=== PATIENT | male | born 1985 | race Caucasian/White ===

== ENCOUNTER 2022-01-06 10:51 | Emergency (ER) | payer MEDICAID, SELFPAY ==
--- NOTE | ~2022-01-06 | XR_ITS ---
EXAMINATION: XR CHEST CLINICAL INFORMATION: Shortness of breath, chest pain. COMPARISON: None TECHNIQUE: 2 views of the chest were obtained. FINDINGS: No significant abnormality is noted involving the heart, lungs, mediastinum, bony thorax or soft tissues. XR/XR chest 2V IMPRESSION: No acute cardiopulmonary process.
--- NOTE | 2022-01-06 10:55 | ECG_ITS ---
Test Reason : chest pain Blood Pressure : / mmHG Vent. Rate : 080 BPM Atrial Rate : 080 BPM P-R Int : 164 ms QRS Dur : 082 ms QT Int : 390 ms P-R-T Axes : 069 040 055 degrees QTc Int : 449 ms Normal sinus rhythm Normal ECG No previous ECGs available Referred By: Generic ED Physician Electronically Signed By:Amarjit Lofton
[2022-01-06 10:57] VITALS: BP 140/80; PULSE 82; RESP 18; TEMP 37.2; O2SAT 100; BMI 32.5
--- NOTE | 2022-01-06 11:50 | ED.CHESTPAIN ---
HPI - Chest Pain General Chief Complaint: Chest Pain Stated Complaint: chest pain sob Time Seen by Provider: 01/06/22 11:07 Source: patient and family Mode of arrival: ambulatory Limitations: no limitations History of Present Illness HPI narrative: 36 yo male with a history of anxiety and depression here with reports of chest discomfort over the last 1 week. Patient tells me the pain is constant but he has varying levels of intensity. Pain does seem worsened with deep breathing, movement, exertion. Patient describes the pain as aching and tingling at times. Sometimes the pain radiates down the left arm. Patient also reports that today he had some associated shortness of breath when he was moving which was rolled with rest. He denies any cough, fever, leg swelling, leg pain, dizziness. Patient does report nausea but tells me that he always has nausea. There is no associated vomiting or diaphoresis. Patient tells me that he has taken several doses of his Lexapro which does seem to improve his symptoms but not alleviate MD complaint: chest pain Related Data Allergies Allergy/AdvReac Type Severity Reaction Status Date / Time No Known Allergies Allergy Verified 01/06/22 11:29 Review of Systems Review of Systems: Yes all other systems are reviewed and are negative Constitutional: Constitutional: Reports no additional constitutional complaints, Denies body ache(s), Denies chills, Denies fever(s), Denies headache(s) and Denies weakness Eyes: Eyes: Reports no additional eye complaints and Denies change in vision ENT: Reports system reviewed and no additional complaints, except as documented, Denies dizziness, Denies headache(s), Denies nasal congestion, Denies nasal discharge and Denies neck pain Cardiovascular: Cardiovascular: Reports no additional cardiovascular complaints, Reports chest pain, Denies leg edema and Reports dyspnea Respiratory: Respiratory: Reports no additional respiratory complaints, Denies cough and Reports dyspnea Gastrointestinal: Gastrointestinal: Reports no additional gastrointestinal complaints, Denies abdominal pain, Denies diarrhea, Denies nausea and Denies vomiting Genitourinary: Genitourinary: Denies urinary incontinence Musculoskeletal: Musculoskeletal: Reports no additional musculoskeletal complaints, Denies back pain, Denies arthralgias, Denies joint swelling, Denies neck pain, Denies numbness and Denies tingling Integumentary/Breasts: Skin/Breast: Reports system reviewed and no additional complaints, except as docu and Denies rash Neurologic: Reports system reviewed and no additional complaints, except as documented, Denies Abnormal speech present, Denies dizziness, Denies headache(s), Denies numbness, Denies tingling and Denies weakness PMFSH Past Medical History Attestation statement: The following information was validated with the patient. Source: old records reviewed and nursing notes reviewed Medical History (Updated 01/06/22 @ 13:09 by Mira Dumas NP) Anxiety Depression Family History Family History (Updated 01/06/22 @ 11:55 by Mira Dumas NP) Father CAD (coronary artery disease) Paternal Grandfather CAD (coronary artery disease) Social History Social History (Updated 01/06/22 @ 12:40 by Mira Dumas NP) Patient Tobacco Use Status: Current everyday Tobacco user Advance Directives: No Advance Directives Information Provided: No Physical Exam Vital Signs: Vital Signs: Last Vital Signs Temp 98.2 F 01/06/22 11:52 Pulse 64 01/06/22 11:52 Resp 15 01/06/22 11:52 BP 118/85 01/06/22 11:52 Pulse Ox 99 01/06/22 11:52 BMI result Body Mass Index 32.5 Const: General: cooperative, healthy appearing, comfortable and no acute distress Orientation/consciousness: patient oriented x3 Limitations: no limitations HENMT: Head: Yes normal to inspection Ears: hearing grossly normal bilaterally and TM's normal bilaterally General nose exam: Normal external nose present Face and sinus: Yes normal facial exam Mouth: Normal oral and palatal mucosa present Throat: Yes posterior oropharynx normal, Yes tonsils normal and Yes uvula midline Eyes: General: appearance normal, both eyes and all related structures Pupils: Equal, round and reactive pupils present Neck: Neck: Yes normal visual inspection, Yes full ROM, Yes no lymphadenopathy and Yes no meningeal signs Chest: Chest palpation & inspection: normal inspection of the chest Resp: Effort & Inspection: normal respiratory effort Auscultation: clear to auscultation bilaterally Cardio: Rate: regular rate Rhythm: regular rhythm Peripheral pulses: Peripheral pulses 2+ throughout GI: Inspection: Yes normal to inspection Palpation (GI): Soft to palpation and nontender Auscultation: normal bowel sounds Back/Spine/Pelvis: Thoracic/Lumbar Spine: thoracic and lumbar spine normal to inspection Skin: General skin exam: no rashes or lesions noted Neuro: General: patient oriented x3, no meningeal signs, no focal motor deficits and normal sensation to monofilament Cranial nerves: Yes Equal, round and reactive pupils present Cognition (Neuro): normal cognition Speech: No Abnormal speech present Gait exam (Neuro): Normal gait present Motor exam (neuro): 5/5 motor strength present throughout Extrem: General: Yes normal to inspection, Yes no pedal edema and Yes no calf tenderness Course Course Course Narrative: 36 yo male with history of anxiety and depression here with chest discomfort for the last 1 week that improves somewhat with taking his Lexapro but has been constant and persistent. Today it was associated with some shortness of breath which warranted his ER visit today. On exam the patient reports the pain is worsened with movement, deep breathing on exertion. His exam is nonfocal. His vitals are stable. Will check EKG, labs, chest x-ray Of note, the patient recovered from COVID of October of 2021. 1300-Pain is resolved after NSAID. I discussed with the patient and his that the labs including troponin/d dimer are negative, EKG is unremarkable as well as chest x-ray. Heart Score 1 for smoking history. Atypical for ACS. Discussed with Dr Hinds. D/t risk factors will refer to cards for follow-up. Patient tells me that he is feeling improved and feels like some of his symptoms to be related to anxiety. He has had increased stress at home for the last week and prior to his pain starting he had a quite severe panic attack which resolved. Recommended continue home lexapro. Reviewed worrisome signs and symptoms with patient such as change in pain, worsened pain and when to return to the emergency department. Comfortable discharge home. MDM - Chest Pain MDM Narrative Medical decision making narrative: Atypical CP x1 week. Consider ACS, PE, myocarditis Medical Records Data Attestation: I reviewed the patient's medical records. Lab Data Attestation: I reviewed the patient's lab results. Result diagrams: 01/06/22 11:46 01/06/22 11:46 Labs: Lab Results 01/06/22 01/06/22 01/06/22 Range/Units 11:46 11:46 11:46 WBC 5.2 (4.8-10.8) X10*3/uL RBC 4.72 (4.60-5.80) X10*6/uL Hgb 14.5 (14.0-18.0) g/dl Hct 42.2 (42.0-52.0) % MCV 89.4 (80.0-98.0) fL MCH 30.7 (27.0-33.0) pg MCHC 34.4 (31.0-36.0) g/dl RDW 11.9 (11.0-16.0) % Plt Count 196 (160-400) X10*3/uL MPV 9.8 (9.4-12.4) fL Immature Gran % (Auto) 0.0 (0.0-0.4) % Neut % (Auto) 44.9 L (45-73) % Lymph % (Auto) 40.4 H (20-40) % [place] % (Auto) 9.3 (2-11) % Eos % (Auto) 4.6 H (0-4) % Baso % (Auto) 0.8 (0-2) % Lymph # (Auto) 2.1 (1.2-4.9) X10*3/uL [place] # (Auto) 0.5 (0.1-1.2) X10*3/uL Eos # (Auto) 0.2 (0.0-0.4) X10*3/uL Baso # (Auto) 0.0 (0.0-0.2) X10*3/uL Abs Immat Gran (auto) 0.00 (0.00-0.03) X10*3/uL Absolute Neuts (auto) 2.3 (2.0-8.3) x10*3/uL Absolute Nucleated RBC 0.000 (0.0-0.012) X10*3/uL Nucleated RBC % (auto) 0.0 (0.0-0.2) /100WBC ESR 5 (0-15) MM/HR PT (9.9-13.0) SEC INR (0.9-1.1) D-Dimer High Sensitivty NG/ML Sodium 141 (135-145) mmol/L Potassium 4.3 (3.3-5.1) mmol/L Chloride 109 H (96-108) mmol/L Carbon Dioxide 26 (22-29) mmol/L Anion Gap 10 L (12-20) BUN 11 (9-16) mg/dL Creatinine 0.86 (0.5-1.4) mg/dL Estim Creat Clear Calc 176.9 Estimated GFR > 60 Random Glucose 94 (60-115) mg/dL Calcium 9.9 (8.4-10.2) mg/dL Magnesium 2.2 (1.6-2.6) mg/dL Total Bilirubin 0.9 (0.0-1.0) mg/dL Direct Bilirubin 0.4 (0.0-0.5) mg/dL AST 16 (5-37) U/L ALT 18 (0-40) U/L Alkaline Phosphatase 52 (39-117) U/L Troponin I High Sens (<3.5-35.0) ng/L C-Reactive Protein 0.17 (< or = 0.50) mg/dL B-Natriuretic Peptide (<100) pg/mL Total Protein 6.8 (6.5-8.0) g/dL Albumin 4.5 (3.5-5.0) g/dL Lipase 37 (8-78) U/L 01/06/22 01/06/22 Range/Units 11:46 11:46 WBC (4.8-10.8) X10*3/uL RBC (4.60-5.80) X10*6/uL Hgb (14.0-18.0) g/dl Hct (42.0-52.0) % MCV (80.0-98.0) fL MCH (27.0-33.0) pg MCHC (31.0-36.0) g/dl RDW (11.0-16.0) % Plt Count (160-400) X10*3/uL MPV (9.4-12.4) fL Immature Gran % (Auto) (0.0-0.4) % Neut % (Auto) (45-73) % Lymph % (Auto) (20-40) % [place] % (Auto) (2-11) % Eos % (Auto) (0-4) % Baso % (Auto) (0-2) % Lymph # (Auto) (1.2-4.9) X10*3/uL [place] # (Auto) (0.1-1.2) X10*3/uL Eos # (Auto) (0.0-0.4) X10*3/uL Baso # (Auto) (0.0-0.2) X10*3/uL Abs Immat Gran (auto) (0.00-0.03) X10*3/uL Absolute Neuts (auto) (2.0-8.3) x10*3/uL Absolute Nucleated RBC (0.0-0.012) X10*3/uL Nucleated RBC % (auto) (0.0-0.2) /100WBC ESR (0-15) MM/HR PT 12.3 (9.9-13.0) SEC INR 1.1 (0.9-1.1) D-Dimer High Sensitivty < 150 NG/ML Sodium (135-145) mmol/L Potassium (3.3-5.1) mmol/L Chloride (96-108) mmol/L Carbon Dioxide (22-29) mmol/L Anion Gap (12-20) BUN (9-16) mg/dL Creatinine (0.5-1.4) mg/dL Estim Creat Clear Calc Estimated GFR Random Glucose (60-115) mg/dL Calcium (8.4-10.2) mg/dL Magnesium (1.6-2.6) mg/dL Total Bilirubin (0.0-1.0) mg/dL Direct Bilirubin (0.0-0.5) mg/dL AST (5-37) U/L ALT (0-40) U/L Alkaline Phosphatase (39-117) U/L Troponin I High Sens < 3.5 (<3.5-35.0) ng/L C-Reactive Protein (< or = 0.50) mg/dL B-Natriuretic Peptide < 10 (<100) pg/mL Total Protein (6.5-8.0) g/dL Albumin (3.5-5.0) g/dL Lipase (8-78) U/L Imaging Data Chest x-ray: Attestation: I personally reviewed and interpreted this imaging study as follows: Radiologist's impression: EXAMINATION: XR CHEST CLINICAL INFORMATION: Shortness of breath, chest pain. COMPARISON: None TECHNIQUE: 2 views of the chest were obtained. FINDINGS: No significant abnormality is noted involving the heart, lungs, mediastinum, bony thorax or soft tissues. XR/XR chest 2V IMPRESSION: No acute cardiopulmonary process. ECG Data ECG #1: Attestation: I personally reviewed and interpreted this ECG as follows: ECG interpretation date: 01/06/22 ECG interpretation time: 10:56 Interpretation: Normal sinus rhythm with rate 80, normal VT, normal QRS, normal QT Discharge Plan Discharge Clinical Impression: Atypical chest pain Patient Disposition: Home, Self-Care Instructions: Chest Pain (DC) Additional Instructions: Your lab work, EKG and chest x-ray are all very reassuring today We are recommending that you follow-up with [facility] for further evaluation Return for more severe pain or any change in symptoms as discussed You may continue taking her home medications. He may also take an anti-inflammatory like ibuprofen or Aleve at home for pain as needed Referrals: Amarjit Lofton MD [Physician] - 1 week
[2022-01-06 11:51] LABS: MANUAL DIFF FLAG NO
[2022-01-06 11:52] VITALS: BP 118/85; PULSE 64; RESP 15; TEMP 36.8; O2SAT 99
[2022-01-06 11:53] LABS: Basophils Percent Auto 0.8 % (0-2); Eosinophils Absolute Auto 0.2 X10*3/uL (0.0-0.4); Eosinophils Percent Auto 4.6 % (0-4); Hematocrit 42.2 % (42.0-52.0); Hemoglobin 14.5 g/dl (14.0-18.0); Lymphocytes Absolute Auto 2.1 X10*3/uL (1.2-4.9); Lymphocytes Percent Auto 40.4 % (20-40); Mean Corpuscular HGB Conc 34.4 g/dl (31.0-36.0); Mean Corpuscular Hemoglobin 30.7 pg (27.0-33.0); Mean Corpuscular Volume 89.4 fL (80.0-98.0); Mean Platelet Volume 9.8 fL (9.4-12.4); Monocytes Absolute Auto 0.5 X10*3/uL (0.1-1.2); Monocytes Percent Auto 9.3 % (2-11); Neutrophils Absolute Auto 2.3 x10*3/uL (2.0-8.3); Neutrophils Percent Auto 44.9 % (45-73); Platelet Count 196 X10*3/uL (160-400); Red Blood Count 4.72 X10*6/uL (4.60-5.80); Red Cell Distribution Width 11.9 % (11.0-16.0); White Blood Count 5.2 X10*3/uL (4.8-10.8)
[2022-01-06 12:03] LABS: INTERNATIONAL NORM RATIO 1.1 (0.9-1.1); Prothrombin Time 12.3 SEC (9.9-13.0)
[2022-01-06 12:10] LABS: D Dimer High Sensitivity < 150 NG/ML
[2022-01-06] MEDS: Aspirin 81 MG TAB.CHEW 324 MG PO (12:19)
[2022-01-06] MEDS: Ketorolac Tromethamine 30 MG/ML VIAL IVPUSH (12:20)
[2022-01-06 12:21] LABS: Alanine Aminotransferase 18 U/L (0-40); Albumin Level 4.5 g/dL (3.5-5.0); Alkaline Phosphatase 52 U/L (39-117); Anion Gap 10 (12-20); Aspartate Amino Transferase 16 U/L (5-37); B Type Natriuretic Peptide < 10 pg/mL (<100); Bilirubin Direct 0.4 mg/dL (0.0-0.5); Bilirubin Total 0.9 mg/dL (0.0-1.0); Blood Urea Nitrogen 11 mg/dL (9-16); C Reactive Protein 0.17 mg/dL (< or = 0.50); Calcium 9.9 mg/dL (8.4-10.2); Carbon Dioxide 26 mmol/L (22-29); Chloride 109 mmol/L (96-108); Creatinine Clr Calc Pharmacy 176.9; Estimated Glomerular Filt Rate > 60; Glucose Random 94 mg/dL (60-115); Lipase 37 U/L (8-78); Magnesium 2.2 mg/dL (1.6-2.6); Potassium 4.3 mmol/L (3.3-5.1); Sodium 141 mmol/L (135-145); Total Protein 6.8 g/dL (6.5-8.0); Troponin-I High Sensitivity < 3.5 ng/L (<3.5-35.0)
[2022-01-06 12:42] LABS: Erythrocyte Sedimentation Rate 5 MM/HR (0-15)
== END 2022-01-06 13:18 | disposition home or self-care (01) ==
PROVIDERS: Nurse Practitioner Family; Emergency Provider Emergency Medicine
DX: R07.89 Other chest pain (principal); R06.02 Shortness of breath; F41.9 Anxiety disorder, unspecified; F17.200 Nicotine dependence, unspecified, uncomplicated; Z79.899 Other long term (current) drug therapy
CPT/HCPCS: 36415; 71046; 80048; 80076; 83690; 83735; 83880; 84484; 85025; 85379; 85610; 85652; 86140; 93005; 96374; 99284; J1885